=== PATIENT | male | born 1975 | race Caucasian/White ===

== ENCOUNTER 2020-06-08 17:20 | Outpatient (CLI) | payer OTHER, SELFPAY | END 2020-06-08 17:21 | disposition home or self-care (01) | LOC: ANHCOVIDVC 17:20 | PROVIDERS: PCP Family Medicine | DX: Z23 Encounter for immunization (principal) | CPT/HCPCS: 0001A; 91300 ==

== ENCOUNTER 2020-06-29 17:15 | Outpatient (CLI) | payer OTHER, SELFPAY | END 2020-06-29 17:16 | disposition home or self-care (01) | LOC: ANHCOVIDVC 17:15 | PROVIDERS: PCP Family Medicine | DX: Z23 Encounter for immunization (principal) | CPT/HCPCS: 0002A; 91300 ==

== ENCOUNTER 2021-03-11 11:23 | Emergency (ER) | payer OTHER, SELFPAY ==
[2021-03-11 11:30] VITALS: BP 132/85; PULSE 97; RESP 16; TEMP 36.3; O2SAT 98
--- NOTE | 2021-03-11 11:50 | ED.URI ---
HPI - URI/Sore Throat General Chief Complaint: Upper Respiratory Infection Stated Complaint: SORE THROAT/NASAL CONGESTION/CHEST PAIN/COUGH Time Seen by Provider: 03/11/21 11:51 Source: patient, RN notes reviewed and old records reviewed Mode of arrival: ambulatory Limitations: no limitations History of Present Illness HPI Narrative: 45-year-old male presents to [facility] care with complaints of scratchy throat, nasal congestion and drainage since with acute cough and some nausea. Patient denies any known fevers, chills, or sweats or any body aches has had COVID vaccinations. Patient reports that he has taken allergy medication and cold and sinus with no improvement in his symptoms. He reports history of sinusitis and past sore throats, has had Tonsillectomy. Patient reports that he has taken Amoxicillin in past with no problems. MD elicited complaint: cough, sore throat, rhinorrhea and nasal congestion Related Data Home Medications Medication Instructions Recorded Confirmed krill 300 mg-omega-3 90 mg-dha 27 cap PO 10/11/20 10/11/20 mg-epa 45 [id number] capsule Allergies Allergy/AdvReac Type Severity Reaction Status Date / Time JOLENE Inhibitors Allergy Intermediate facial Verified 03/11/21 11:34 swelling cefaclor Allergy Unknown unknown Verified 03/11/21 11:34 Cephalosporins Allergy Unknown unknown Verified 03/11/21 11:34 PROCHLORPERAZINE EDISYLATE Allergy Unknown unknown Uncoded 03/11/21 11:34 PROCHLORPERAZINE MALEATE Allergy Unknown unknown Uncoded 03/11/21 11:34 Review of Systems Review of Systems: CONSTITUTIONAL: Denies fever, chills, or sweats. EYES: Denies visual changes, redness, or discharge. ENT: Positive for rhinorrhea, congestion, sore throat, no otalgia. CARDIOVASCULAR: Denies chest pain, palpitations, or edema. RESPIRATORY:Positive for dry cough no dyspnea. GASTROINTESTINAL: Denies abdominal pain, positive for nausea, no vomiting, or diarrhea. GENITOURINARY: Denies dysuria or hematuria. SKIN: Denies rash or itching. MUSCULOSKELETAL: Denies back pain, joint pain, or myalgia. NEUROLOGIC: Denies headache, numbness, or weakness. 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 Hyperlipidemia, acquired Sinusitis Type 2 diabetes mellitus without complications Surgical History Surgical History (Updated 03/12/21 @ 09:27 by Alysia Leo NP) History of tonsillectomy and adenoidectomy Family History Family History Father Hypertension Family history of diabetes mellitus in first degree relative Family history of coronary artery disease Mother Hypertension Social History Social History (Updated 03/12/21 @ 09:29 by Alysia Leo NP) Smoking status: Never smoker Alcohol intake: unknown Substance use: never Living arrangements: with family Gender identity (if verbalized by the patient): Male Comments At time of signature, agree with nursing past medical, surgical, social and family history. There is no relevant family history pertinent to the presenting complaint Exam Narrative: GENERAL: Well-appearing, well-nourished, and in no acute distress. HEAD: Normocephalic, atraumatic. EYES: PERRLA and EOMI. ENT: Nares rd with swollen turbinates, clear to yellow tinged rhinorrhea no epistaxis. Mucous membranes moist. TM's normal with dull light reflex, throat has redness with no lesions or exudates, tonsils absent, post nasal drainage present. NECK: Supple.no lymphadenopathy CHEST: Clear to auscultation. No respiratory distress.dry cough, SAO2 97% on room air, no tachypnea or any accessory muscle use noted HEART: Regul
== END 2021-03-11 12:08 | disposition home or self-care (01) ==
PROVIDERS: Emergency Provider Registered Nurse
DX: J32.9 Chronic sinusitis, unspecified (principal); B96.89 Other specified bacterial agents as the cause of diseases classified elsewhere; E11.9 Type 2 diabetes mellitus without complications; E78.5 Hyperlipidemia, unspecified; I10 Essential (primary) hypertension
CPT/HCPCS: 99213; G0463

== ENCOUNTER 2021-08-14 16:02 | Emergency (ER) | payer OTHER, SELFPAY ==
--- NOTE | 2021-08-14 16:12 | ED.URI ---
HPI - URI/Sore Throat General Chief Complaint: Upper Respiratory Infection Stated Complaint: scratchy throat/stuffy nose/cough/l earache/hiccup Time Seen by Provider: 08/14/21 16:12 Source: patient, RN notes reviewed and old records reviewed Mode of arrival: ambulatory Limitations: no limitations History of Present Illness HPI Narrative: 46 year old male who presents to [facility] care with complaints of 2 days of scratchy throat, stuffy nose, left earache and he reports he has had hiccups since 0600.Patient reports that he has had dry cough with no expectoration of mucous, his throat is scratchy and he has had some nasal drainage and post nasal drainage with his left ear mildly painful, Patient reports that he has had incidence of hiccups before and was given some medication to get them to go away but doesn't recall name. Patient very agitated and impatient today. Patient has not taken any OTC medications for his symptoms. MD elicited complaint: cough and other (stuffy nose, earache) Related Data Home Medications Medication Instructions Recorded Confirmed krill 300 mg-omega-3 90 mg-dha 27 cap PO 10/11/20 05/06/21 mg-epa 45 [id number] capsule Allergies Allergy/AdvReac Type Severity Reaction Status Date / Time JOLENE Inhibitors Allergy Intermediate facial Verified 05/06/21 15:53 swelling cefaclor Allergy Unknown unknown Verified 05/06/21 15:53 Cephalosporins Allergy Unknown unknown Verified 05/06/21 15:53 PROCHLORPERAZINE EDISYLATE Allergy Unknown unknown Uncoded 05/06/21 15:53 PROCHLORPERAZINE MALEATE Allergy Unknown unknown Uncoded 05/06/21 15:53 Review of Systems Review of Systems: CONSTITUTIONAL: Denies fever, chills, or sweats. EYES: Denies visual changes, redness, or discharge. ENT: Positive for rhinorrhea, congestion, sore throat, left otalgia, also reports hiccups started at 0600. CARDIOVASCULAR: Denies chest pain, palpitations, or edema. RESPIRATORY: Positive cough denies dyspnea. GASTROINTESTINAL: Denies abdominal pain, nausea, vomiting, or diarrhea. GENITOURINARY: Denies dysuria or hematuria. SKIN: Denies rash or itching. MUSCULOSKELETAL: Denies back pain, joint pain, or myalgia. NEUROLOGIC: Denies headache, numbness, or weakness. PSYCHIATRIC: Positive for history of anxiety or depression. 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 There is no relevant family history pertinent to the presenting complaint Exam Narrative: GENERAL: Well-appearing, well-nourished, and in no acute distress. HEAD: Normocephalic, atraumatic. EYES: PERRLA and EOMI. ENT: Nares minimal redness with clear rhinorrhea no epistaxis. Mucous membranes moist.TM's normal with good light reflex, some wax noted to ear canals, throat red with no lesions or exudates, no tonsils present, post nasal drainage noted. Patient states that he has had hiccups since 0600 this morning reports he had this once before about 15 years ago and
[2021-08-14 16:14] VITALS: BP 143/115; PULSE 116; RESP 16; TEMP 36.9; O2SAT 98
== END 2021-08-14 16:46 | disposition home or self-care (01) ==
PROVIDERS: Emergency Provider Registered Nurse
DX: R06.6 Hiccough (principal); J06.9 Acute upper respiratory infection, unspecified; N40.0 Benign prostatic hyperplasia without lower urinary tract symptoms; E78.5 Hyperlipidemia, unspecified; E11.9 Type 2 diabetes mellitus without complications
CPT/HCPCS: 87081; 87880; 99213; G0463

== ENCOUNTER 2021-09-17 11:39 | Emergency (ER) | payer OTHER, SELFPAY ==
[2021-09-17 11:42] VITALS: BP 124/77; PULSE 105; RESP 12; TEMP 36.9; O2SAT 99
--- NOTE | 2021-09-17 11:58 | ED.URI ---
HPI - URI/Sore Throat General Chief Complaint: Upper Respiratory Infection Stated Complaint: SORE THROAT/EARACHE/HEADACHE/CONGESTION Time Seen by Provider: 09/17/21 11:49 Source: patient Mode of arrival: ambulatory Limitations: no limitations History of Present Illness HPI Narrative: Patient presents today complaining of a 5-day history of nasal congestion, intermittent ear pressure, sore throat, and mild cough. Denies fever, shortness of breath, or any additional symptoms. Denies sick contacts. He has been taking Mucinex DM with little relief. Patient is requesting a prescription for amoxicillin as this has helped him in the past. Related Data Home Medications Medication Instructions Recorded Confirmed krill 300 mg-omega-3 90 mg-dha 27 cap PO 10/11/20 05/06/21 mg-epa 45 [id number] capsule (Maximum Red Krill [place]-3) Allergies Allergy/AdvReac Type Severity Reaction Status Date / Time JOLENE Inhibitors Allergy Intermediate facial Verified 05/06/21 15:53 swelling cefaclor Allergy Unknown unknown Verified 05/06/21 15:53 Cephalosporins Allergy Unknown unknown Verified 05/06/21 15:53 PROCHLORPERAZINE EDISYLATE Allergy Unknown unknown Uncoded 05/06/21 15:53 PROCHLORPERAZINE MALEATE Allergy Unknown unknown Uncoded 05/06/21 15:53 Review of Systems Review of Systems: CONSTITUTIONAL: Denies body aches, fever, chills, or sweats. EYES: Denies visual changes, redness, or discharge. ENT: Denies rhinorrhea. + Congestion, sore throat, ear pressure CARDIOVASCULAR: Denies chest pain, palpitations, or edema. RESPIRATORY: Denies dyspnea.+ Cough GASTROINTESTINAL: Denies abdominal pain, nausea, vomiting, or diarrhea. GENITOURINARY: Denies dysuria or hematuria. SKIN: Denies rash, itching, or wounds. MUSCULOSKELETAL: Denies back pain, joint pain, or myalgia. NEUROLOGIC: Denies headache, numbness, tingling, or weakness. PSYCH: Denies depression or anxiety. 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 Hyperlipidemia, acquired Seasonal allergies Type 2 diabetes mellitus without complications Surgical History Surgical History History of tonsillectomy and adenoidectomy Family History Family History Father Hypertension Family history of diabetes mellitus in first degree relative Family history of coronary artery disease Mother Hypertension Social History Social History Smoking status: Never smoker Alcohol intake: unknown Substance use: never Gender identity (if verbalized by the patient): Male Comments At time of signature, I have reviewed and agree with nursing past medical, surgical, social and family history unless otherwise noted. Please see nursing chart for further information. There is no relevant family history pertinent to the presenting complaint Exam Narrative: GENERAL: Well-appearing, well-nourished, and in no acute distress. HEAD: Normocephalic, atraumatic. EYES: EOMI. No redness or drainage. Conjunctivae normal. ENT: Mucous membranes pink and moist. Nares congestion. Nasal turbinates normal without purulent discharge. No rhinorrhea. TMs normal bilaterally. Throat normal. Uvula midline. NECK: Normal AROM. Supple. No lymphadenopathy. CHEST: No respiratory distress. Clear to auscultation. HEART: Regular rate and rhythm. No murmur appreciated. Normal peripheral pulses. EXTREMITIES: Normal range of motion. No edema. SKIN: Warm, dry, no rash. Capillary refill normal. Normal skin turgor. NEURO: No focal deficits. Alert and oriented x3. Gait steady. PSYCH: Normal affect. No signs of depression or anxiety. Course Course Level of Car
== END 2021-09-17 12:06 | disposition home or self-care (01) ==
PROVIDERS: Emergency Provider Nurse Practitioner; PCP Nurse Practitioner Family
DX: J06.9 Acute upper respiratory infection, unspecified (principal); N40.0 Benign prostatic hyperplasia without lower urinary tract symptoms; E78.5 Hyperlipidemia, unspecified; E11.9 Type 2 diabetes mellitus without complications
CPT/HCPCS: 99213; G0463

== ENCOUNTER 2021-12-10 11:33 | Outpatient (CLI) | payer OTHER, SELFPAY ==
[2021-12-10 18:56] LABS: Basophils Absolute Auto 0.1 K/mm3 (0.0-0.1); Basophils Percent Auto 1.4 % (0.2-1.2); Eosinophils Absolute Auto 0.2 K/mm3 (0-0.3); Eosinophils Percent Auto 2.7 % (0-4.4); Hematocrit 45.8 % (42.0-52.0); Hemoglobin 15.5 g/dL (14.0-18.0); Immature Granulocyte Absolute 0.05 K/mm3 (0.00-0.031); Immature Granulocyte Percent A 0.6 % (0-0.5); Lymphocytes Absolute Auto 2.13 K/mm3 (0.9-3.2); Lymphocytes Percent Auto 26.4 % (18.3-44.2); Mean Corpuscular HGB Conc 33.8 g/dl (32-36); Mean Corpuscular Hemoglobin 30.6 pg (26-34); Mean Corpuscular Volume 90.5 fl (80-100); Mean Platelet Volume 8.7 fl (7.4-10.4); Monocytes Absolute Auto 0.4 K/mm3 (0.1-0.6); Monocytes Percent Auto 4.5 % (2.6-8.5); Neutrophils Absolute Auto 5.2 K/mm3 (1.3-6.7); Neutrophils Percent Auto 64.4 % (45.5-73.1); Platelet Count Result 352 k/mm3 (150-375); Red Blood Count 5.06 M/mm3 (4.6-6.20); Red Cell Distribution Width 13.3 % (11.5-14.5); White Blood Count 8.1 K/mm3 (4.5-10.0)
[2021-12-10 19:06] LABS: Cholesterol 195 mg/dL (0-200); HDL Direct 40 mg/dL; Triglycerides 281 mg/dL (<150)
[2021-12-10 19:24] LABS: Hemoglobin A1C 6.1 % (<5.7)
[2021-12-10 19:26] LABS: LDL Cholesterol Direct 95 mg/dL
[2021-12-10 19:54] LABS: Microalbumin Urine Random < 6.0 mg/L (0-16.7)
[2021-12-10 19:55] LABS: MALB Creatinine Ratio < 15.0 mg/g (0-30)
== END 2021-12-10 11:34 | disposition home or self-care (01) ==
LOC: ANHGOSHLAB 11:34
PROVIDERS: PCP Nurse Practitioner Family; Visit Provider Nurse Practitioner Family
DX: R53.83 Other fatigue (principal); I10 Essential (primary) hypertension; E11.9 Type 2 diabetes mellitus without complications; E78.5 Hyperlipidemia, unspecified
CPT/HCPCS: 36415; 80061; 82043; 83036; 84443; 85025

== ENCOUNTER 2022-05-20 11:30 | Emergency (ER) | payer OTHER, SELFPAY ==
[2022-05-20 11:42] VITALS: BP 140/87; PULSE 86; RESP 16; TEMP 36.3; O2SAT 98
--- NOTE | 2022-05-20 12:09 | ED.GENADULT ---
HPI - General Adult General Chief complaint: Upper Respiratory Infection Stated complaint: SORE THROAT/EARS/NOSE/BODY ACHES Source: patient Mode of arrival: ambulatory Limitations: no limitations History of Present Illness HPI narrative: Patient is for evaluation of sick symptoms for last 4 days. Symptoms include sore throat, bilateral otalgia, sinus congestion and cough. No fever, chills, nausea, vomiting, diarrhea. His child recently had sick symptoms but he believes that they were viral in origin. No personal history of COVID. He has received COVID vaccination and booster. Hx of tonsillectomy. No additional or concerns Related Data Home Medications Medication Instructions Recorded Confirmed krill 300 mg-omega-3 90 mg-dha 27 1 cap PO DAILY 10/11/20 05/20/22 mg-epa 45 [id number] capsule (Maximum Red Krill [place]-3) Allergies Allergy/AdvReac Type Severity Reaction Status Date / Time JOLENE Inhibitors Allergy Intermediate facial Verified 05/20/22 11:32 swelling cefaclor Allergy Unknown unknown Verified 05/20/22 11:32 Cephalosporins Allergy Unknown unknown Verified 05/20/22 11:32 PROCHLORPERAZINE EDISYLATE Allergy Unknown unknown Uncoded 05/20/22 11:32 PROCHLORPERAZINE MALEATE Allergy Unknown unknown Uncoded 05/20/22 11:32 Review of Systems Review of Systems: CONSTITUTIONAL: Denies fever, chills, or sweats. EYES: Denies visual changes, redness, or discharge. ENT: reports sinus congestion, sore throat and bilateral otalgia. CARDIOVASCULAR: Denies chest pain, palpitations, or edema. RESPIRATORY: Reports cough. Denies shortness of breath GASTROINTESTINAL: Denies abdominal pain, nausea, vomiting, or diarrhea. GENITOURINARY: Denies dysuria or hematuria. SKIN: Denies rash or itching. MUSCULOSKELETAL: Denies back pain, joint pain, or myalgia. NEUROLOGIC: Denies headache, numbness, dizziness, or weakness. PSYCHIATRIC: Denies anxiety or depression. 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 Hyperlipidemia, acquired Seasonal allergies Type 2 diabetes mellitus without complications Surgical History Surgical History History of tonsillectomy and adenoidectomy Family History Family History Father Hypertension Family history of diabetes mellitus in first degree relative Family history of coronary artery disease Mother Hypertension Social History Social History Smoking status: Never smoker Alcohol intake: current Substance use: never Living arrangements: alone Occupation/Education: occupation Gender identity (if verbalized by the patient): Male Sexual Orientation (if Verbalized by the Patient): Straight or Heterosexual Exam Narrative: GENERAL: Well-appearing, well-nourished, and in no acute distress. HEAD: Normocephalic, atraumatic. EYES: PERRLA and EOMI. ENT: Nares clear, no rhinorrhea or epistaxis. Mucous membranes moist. posterior pharyngeal erythema without exudate. Uvula is midline. ear canals are ceruminous bilaterally. NECK: Supple. No adenopathy or masses. No carotid bruits or JVD CHEST: Clear to auscultation. No respiratory distress. No wheezes rales or rhonchi HEART: Regular rate and rhythm. No murmur heard. Normal peripheral pulses. ABDOMEN: Soft, nontender, nondistended, normal active bowel sounds. EXTREMITIES: Normal range of motion. No edema. SKIN: Warm, dry, no rash. NEURO: No focal deficits. Alert and oriented x3. PSYCH: Normal mood and affect. Course Course Emergency Course: This is a 47-year-old male who presented for evaluation of sore throat, ear pain, sinus congestion cough. Influenza was ne
== END 2022-05-20 12:08 | disposition home or self-care (01) ==
PROVIDERS: Emergency Provider Nurse Practitioner
DX: J02.0 Streptococcal pharyngitis (principal); E78.5 Hyperlipidemia, unspecified; E11.9 Type 2 diabetes mellitus without complications; I10 Essential (primary) hypertension; N40.0 Benign prostatic hyperplasia without lower urinary tract symptoms; Z79.84 Long term (current) use of oral hypoglycemic drugs
CPT/HCPCS: 87804; 87880; 99213; G0463

== ENCOUNTER 2022-07-18 08:00 | Outpatient (CLI) | payer OTHER, SELFPAY ==
[2022-07-18 18:17] LABS: Basophils Absolute Auto 0.1 K/mm3 (0.0-0.1); Basophils Percent Auto 1.5 % (0.2-1.2); Eosinophils Absolute Auto 0.4 K/mm3 (0-0.3); Eosinophils Percent Auto 4.3 % (0-4.4); Hematocrit 43.3 % (42.0-52.0); Hemoglobin 15.2 g/dL (14.0-18.0); Immature Granulocyte Absolute 0.06 K/mm3 (0.00-0.031); Immature Granulocyte Percent A 0.7 % (0-0.5); Lymphocytes Percent Auto 27.2 % (18.3-44.2); Mean Corpuscular HGB Conc 35.1 g/dl (32-36); Mean Corpuscular Hemoglobin 30.9 pg (26-34); Mean Platelet Volume 8.9 fl (7.4-10.4); Monocytes Absolute Auto 0.4 K/mm3 (0.1-0.6); Monocytes Percent Auto 5.2 % (2.6-8.5); Neutrophils Absolute Auto 4.9 K/mm3 (1.3-6.7); Neutrophils Percent Auto 61.1 % (45.5-73.1); Platelet Count Result 326 k/mm3 (150-375); Red Blood Count 4.92 M/mm3 (4.6-6.20); Red Cell Distribution Width 12.5 % (11.5-14.5); White Blood Count 8.1 K/mm3 (4.5-10.0)
[2022-07-18 18:35] LABS: Hemoglobin A1C 6.2 % (<5.7)
[2022-07-18 18:51] LABS: Alanine Aminotransferase 34 U/L (6-50); Albumin Level 4.4 g/dL (3.5-5.1); Alkaline Phosphatase 80 U/L (38-126); Anion Gap 6 mmol/L (8-16); Aspartate Amino Transferase 34 U/L (17-59); Bilirubin,Total 1.1 mg/dL (0.2-1.3); Blood Urea Nitrogen 13 mg/dL (9-20); Calcium 8.9 mg/dL (8.4-10.2); Carbon Dioxide 31 mmol/L (22-30); Chloride 99 mmol/L (98-107); Cholesterol 146 mg/dL (0-200); Estimated Glomerular Filt Rate > 60; Glucose 145 mg/dL (65-110); HDL Direct 38 mg/dL; Potassium 4.2 mmol/L (3.4-5.0); Sodium 136 mmol/L (137-145); Triglycerides 315 mg/dL (<150)
[2022-07-18 19:02] LABS: LDL Cholesterol Direct 61 mg/dL
== END 2022-07-18 08:01 | disposition home or self-care (01) ==
LOC: ANHGOSHLAB 08:01
PROVIDERS: Visit Provider Nurse Practitioner Family
DX: E11.9 Type 2 diabetes mellitus without complications (principal); I10 Essential (primary) hypertension; E78.5 Hyperlipidemia, unspecified
CPT/HCPCS: 36415; 80053; 80061; 83036; 85025

== ENCOUNTER 2022-10-09 10:35 | Outpatient (CLI) | payer OTHER, SELFPAY ==
[2022-10-09 19:13] LABS: Alanine Aminotransferase 52 U/L (6-50); Albumin Level 4.5 g/dL (3.5-5.1); Alkaline Phosphatase 74 U/L (38-126); Anion Gap 8 mmol/L (8-16); Aspartate Amino Transferase 52 U/L (17-59); Bilirubin,Total 0.9 mg/dL (0.2-1.3); Blood Urea Nitrogen 14 mg/dL (9-20); Calcium 9.1 mg/dL (8.4-10.2); Carbon Dioxide 25 mmol/L (22-30); Chloride 105 mmol/L (98-107); Estimated Glomerular Filt Rate > 60; Glucose 133 mg/dL (65-110); Potassium 4.3 mmol/L (3.4-5.0); Sodium 138 mmol/L (137-145)
[2022-10-09 19:25] LABS: Vitamin D 25 Hydroxy 28.7 ng/mL
[2022-10-09 19:43] LABS: Basophils Absolute Auto 0.1 K/mm3 (0.0-0.1); Basophils Percent Auto 1.5 % (0.2-1.2); Eosinophils Absolute Auto 0.2 K/mm3 (0-0.3); Eosinophils Percent Auto 3.2 % (0-4.4); Hematocrit 45.3 % (42.0-52.0); Hemoglobin 15.2 g/dL (14.0-18.0); Immature Granulocyte Absolute 0.04 K/mm3 (0.00-0.031); Immature Granulocyte Percent A 0.6 % (0-0.5); Immature Platelet Fraction Pct 2.5 % (0.9-11.2); Lymphocytes Absolute Auto 2.12 K/mm3 (0.9-3.2); Lymphocytes Percent Auto 31.2 % (18.3-44.2); Mean Corpuscular HGB Conc 33.6 g/dl (32-36); Mean Corpuscular Hemoglobin 30.7 pg (26-34); Mean Corpuscular Volume 91.5 fl (80-100); Mean Platelet Volume 9.3 fl (7.4-10.4); Monocytes Absolute Auto 0.3 K/mm3 (0.1-0.6); Monocytes Percent Auto 4.7 % (2.6-8.5); Neutrophils Percent Auto 58.8 % (45.5-73.1); Platelet Count Result 370 k/mm3 (150-375); Red Blood Count 4.95 M/mm3 (4.6-6.20); Red Cell Distribution Width 13.3 % (11.5-14.5); White Blood Count 6.8 K/mm3 (4.5-10.0)
[2022-10-09 19:57] LABS: Platelet Estimate Adequate (Adequate); Schistocytes None Seen (NORMAL)
[2022-10-09 20:30] LABS: Hemoglobin A1C 7.1 % (<5.7)
[2022-10-14 12:39] LABS: Testosterone Free 79.2 pg/mL (35.0-155.0); Testosterone Total 273 ng/dL (250-1100)
== END 2022-10-09 10:36 | disposition home or self-care (01) ==
LOC: ANHGOSHLAB 10:36
PROVIDERS: PCP Nurse Practitioner Family; Visit Provider Family Medicine
DX: Z00.00 Encounter for general adult medical examination without abnormal findings (principal); R53.83 Other fatigue; I10 Essential (primary) hypertension; E11.9 Type 2 diabetes mellitus without complications; E53.8 Deficiency of other specified B group vitamins; E55.9 Vitamin D deficiency, unspecified
CPT/HCPCS: 36415; 80053; 82306; 82607; 83036; 84402; 84403; 84443; 85025; 85055

== ENCOUNTER 2023-09-02 07:55 | Outpatient (CLI) | payer OTHER, SELFPAY ==
[2023-09-02 19:33] LABS: Basophils Absolute Auto 0.1 K/mm3 (0.0-0.1); Basophils Percent Auto 1.2 % (0.2-1.2); Eosinophils Absolute Auto 0.3 K/mm3 (0-0.3); Eosinophils Percent Auto 3.9 % (0-4.4); Hematocrit 45.6 % (42.0-52.0); Hemoglobin 15.1 g/dL (14.0-18.0); Immature Granulocyte Percent A 1.2 % (0-0.5); Lymphocytes Absolute Auto 2.66 K/mm3 (0.9-3.2); Lymphocytes Percent Auto 32.6 % (18.3-44.2); Mean Corpuscular HGB Conc 33.1 g/dl (32-36); Mean Corpuscular Hemoglobin 30.9 pg (26-34); Mean Corpuscular Volume 93.4 fl (80-100); Mean Platelet Volume 8.9 fl (7.4-10.4); Monocytes Absolute Auto 0.4 K/mm3 (0.1-0.6); Monocytes Percent Auto 5.4 % (2.6-8.5); Neutrophils Absolute Auto 4.5 K/mm3 (1.3-6.7); Neutrophils Percent Auto 55.7 % (45.5-73.1); Platelet Count Result 322 k/mm3 (150-375); Red Blood Count 4.88 M/mm3 (4.6-6.20); Red Cell Distribution Width 12.7 % (11.5-14.5); White Blood Count 8.2 K/mm3 (4.5-10.0)
[2023-09-02 20:42] LABS: Alanine Aminotransferase 32 U/L (6-50); Albumin Level 4.3 g/dL (3.5-5.1); Alkaline Phosphatase 63 U/L (38-126); Anion Gap 6 mmol/L (4-12); Aspartate Amino Transferase 40 U/L (17-59); Bilirubin,Total 1.2 mg/dL (0.2-1.3); Blood Urea Nitrogen 13 mg/dL (9-20); Carbon Dioxide 27 mmol/L (22-30); Chloride 104 mmol/L (98-107); Cholesterol 152 mg/dL (0-200); Estimated Glomerular Filt Rate > 60; Glucose 150 mg/dL (65-110); HDL Direct 37 mg/dL; Potassium 4.4 mmol/L (3.4-5.0); Sodium 137 mmol/L (137-145); Triglycerides 309 mg/dL (<150)
[2023-09-02 20:54] LABS: LDL Cholesterol Direct 76 mg/dL
[2023-09-02 21:07] LABS: Hemoglobin A1C 6.6 % (<5.7)
[2023-09-02 21:08] LABS: Creatinine Urine 18.9 mg/dL
[2023-09-02 21:34] LABS: Microalbumin Urine Random < 6.0 mg/L (0-16.7)
[2023-09-05 11:34] LABS: Vitamin D 1,25 (OH)2 Total 38 pg/mL (18-72); Vitamin D2 1,25 (OH)2 <8 pg/mL; Vitamin D3 1,25 (OH)2 38 pg/mL
== END 2023-09-02 07:56 | disposition home or self-care (01) ==
LOC: ANHGOSHLAB 07:56
PROVIDERS: PCP Nurse Practitioner Family; Visit Provider Nurse Practitioner Family
DX: E55.9 Vitamin D deficiency, unspecified (principal); I10 Essential (primary) hypertension; E11.9 Type 2 diabetes mellitus without complications; E53.8 Deficiency of other specified B group vitamins
CPT/HCPCS: 36415; 80053; 80061; 82043; 82607; 82652; 83036; 85025

== ENCOUNTER 2024-06-14 12:01 | Emergency (ER) | payer OTHER, SELFPAY ==
--- NOTE | 2024-06-14 12:04 | ED_ITS ---
HPI - URI/Sore Throat General Chief Complaint: Upper Respiratory Infection Stated Complaint: sorethroat Time Seen by Provider: 06/14/24 12:10 Source: patient Mode of arrival: ambulatory Limitations: no limitations History of Present Illness HPI Narrative: Gareth is a 49-year-old male patient presenting to the clinic today with complaints of sore throat, body aches, nasal congestion, cough, feeling feverish x 1 day. He reports no chest pain or shortness of breath. MD elicited complaint: fever, cough, sore throat and nasal congestion Related Data Home Medications ?Medication ?Instructions ?Recorded ?Confirmed ?Last Taken ?Type krill 300 mg-omega-3 90 mg-dha 27 1 cap PO DAILY 10/11/20 06/14/24 Unknown History mg-epa 45 [id number] capsule (Maximum Red Krill [place]-3) esomeprazole magnesium 20 mg 20 mg PO DAILY 09/29/22 06/14/24 Unknown History capsule,delayed release (Nexium) Allergies Allergy/AdvReac Type Severity Reaction Status Date / Time JOLENE Inhibitors Allergy Intermediate facial Verified 06/14/24 12:08 swelling cefaclor Allergy Unknown unknown Verified 06/14/24 12:08 Cephalosporins Allergy Unknown unknown Verified 06/14/24 12:08 PROCHLORPERAZINE EDISYLATE Allergy Unknown unknown Uncoded 06/14/24 12:08 PROCHLORPERAZINE MALEATE Allergy Unknown unknown Uncoded 06/14/24 12:08 Review of Systems Review of Systems: Pertinent positives per HPI. Patient denies any rash, headache, visual changes, dizziness, shortness of breath, chest pain, palpitations, nausea, vomiting, diarrhea, constipation, abdominal pain, or any urinary issues. 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 Hyperlipidemia, acquired Surgical History Surgical History History of tonsillectomy and adenoidectomy Family History Family History Father Hypertension Family history of diabetes mellitus in first degree relative Family history of coronary artery disease Mother Hypertension Social History Social History Smoking status: Never smoker Alcohol intake: current Alcohol use details: occasional (1-2 drinks every couple of weeks) Substance use: never Substance use type: does not use Lack of Transportation: No Lack of Food: Never True Current Housing: I Have Housing Concerned About Future Housing: No Difficulty Paying Gas/Electric Bills: No Difficulty Paying for Meds: No Currently Unemployed: No Education: High School Diploma/GED Difficulty w/ Childcare or Family Care: No Living arrangements: alone Occupation/Education: occupation Gender identity (if verbalized by the patient): Male Sexual Orientation (if Verbalized by the Patient): Straight or Heterosexual Spiritual care concerns: No Agree to blood products: Yes Comments At the time of my signature, I reviewed and agree with the nursing past medical, surgical, social, and family history. There is no relevant family history pertinent to the patient complaint. Exam Narrative: General: Well-developed, well nourished, in no apparent distress Head: Normocephalic, atraumatic Eyes: Pupils equally round and reactive to light bilaterally, EOM intact, sclera and conjunctive clear, no discharge, lids normal Ears: TMs intact and clear, ear canals clear, no drainage, grossly hearing normal. Nose: Nares patent, clear nasal discharge, no inflammation, no sinus tenderness. Mouth: Oral pharynx red without lesions or masses, good dentition, MMM. Neck: Supple, trachea midline, no enlargement of anterior or posterior cervical nodes, no thyroid masses or goiter palpable. Cardio: Regular rate and rhythm, s1 and s2 normal, no murmur appreciated. Resp: Clear to auscultation bilaterally, no rhonchi, rales, wheezing or rubs Course Course Emergency Course: Portions of this record may have been created with voice recognition software. Level of Care: Express Care Visit Vital Signs Vital signs: Vital Signs Temperature 36.0 C L 06/14/24 12:13 Pulse Rate 98 06/14/24 12:13 Respiratory Rate 16 06/14/24 12:13 Blood Pressure 106/92 H 06/14/24 12:13 Pulse Oximetry 97 06/14/24 12:13 Temperature 36.0 C L 06/14/24 12:13 Pulse Rate 98 06/14/24 12:13 Respiratory Rate 16 06/14/24 12:13 Blood Pressure 106/92 H 06/14/24 12:13 Pulse Oximetry 97 06/14/24 12:13 Vital signs reviewed MDM - URI/Sore Throat MDM Narrative Medical decision making narrative: At the time of visit patient is resting comfortably on the exam table. Patient appears to be nontoxic. Labs: COVID, influenza, and strep test were all performed. All testing was negative. Plan: I suspect patient has URI/pharyngitis/viral syndrome. Supportive measures were discussed with the patient and they voiced understanding discharge instructions and agrees to treatment plan. Return precautions reviewed Differential Diagnosis Differential diagnosis: Likely upper respiratory infection, otitis media, sinusitis, viral infection, bronchitis, influenza, pharyngitis and other (COVID) Lab Data Labs: Lab Results 06/14/24 06/14/24 Range/Units 12:23 12:27 POC Influenza A Ag Negative (Negative) POC Influenza B Ag Negative (Negative) POC SARS CoV-2 Ag Negative (Negative) POC Grp A Strep Screen Negative (Negative) Discharge Plan Discharge Clinical Impression: Viral infection Upper respiratory infection Qualifiers: URI type: unspecified URI Qualified Code(s): J06.9 - Acute upper respiratory infection, unspecified Pharyngitis Qualifiers: Pharyngitis/tonsillitis etiology: unspecified etiology Qualified Code(s): J02.9 - Acute pharyngitis, unspecified Patient Disposition: Home, Self-Care Condition: Stable Instructions: Antibiotic Form, Pharyngitis (ED), Viral Syndrome (ED), Cold Symptoms (ED) Additional Instructions: COVID, influenza, and strep test were all performed and negative in the clinic today. We will send strep for culture. No sign of bacterial infection in the clinic today and lung sounds are clear May take Coricidin HBP for cold/flu symptoms Increase fluids and stay well hydrated Tylenol/motrin for pain/fever Flonase and OTC antihistamines as directed Vicks vapor rub to open sinuses Sinus rinses for congestion Cepacol spray, cough drops, throat lozenges, warm tea with honey/lemon, gargle salt water to soothe throat BRAT diet for diarrhea Clear liquids x 24 hours then advance as tolerated for nausea/vomiting Go to the ED if you develop a worsening in your condition- high fever not controlled by Tylenol or Motrin, dehydration, weakness, lethargy, shortness of breath, or chest pain. Follow up with your PCP in 3-5 days if symptoms persist. Patient Language: Colombian Prescriptions: No Action Maximum Red Krill [place]-3 [id number] mg capsule 1 cap PO DAILY esomeprazole magnesium [Nexium] 20 mg Capsule,Delayed Release(Dr/Ec) 20 mg PO DAILY cyanocobalamin (vitamin B-12) 1,000 mcg tablet, sublingual 1,000 mcg sublingual DAILY Qty: 90 1RF cholecalciferol (vitamin D3) 50 mcg (2,000 unit) tablet 50 mcg PO DAILY Qty: 90 2RF losartan 25 mg tablet 25 mg PO DAILY Qty: 90 1RF diltiazem HCl 60 mg capsule,extended release 12 hr 60 mg PO DAILY Qty: 90 1RF rosuvastatin 10 mg tablet 10 mg PO DAILY Qty: 90 1RF metformin [Glucophage XR] 500 mg tablet extended release 24 hr 1,000 mg PO DAILY Qty: 180 1RF Follow-up/Referrals: [facility] [Primary Care Provider] - Stand Alone Forms: Work/School Release IP Time of Disposition: 12:32 Quality NIHSS Nursing Documentation ED NIHSS nursing documentation: reviewed/agree
[2024-06-14 12:13] VITALS: BP 106/92; PULSE 98; RESP 16; TEMP 36; O2SAT 97
[2024-06-14 12:25] LABS: EDSTREPNEGPOS1 Negative (Negative)
[2024-06-14 12:29] LABS: EDCOVIDSCREEN Negative (Negative); EDINFLUASCREEN Negative (Negative); EDINFLUBSCREEN Negative (Negative)
== END 2024-06-14 12:37 | disposition home or self-care (01) ==
PROVIDERS: Emergency Provider Nurse Practitioner Family
DX: J06.9 Acute upper respiratory infection, unspecified (principal); E11.9 Type 2 diabetes mellitus without complications; E78.5 Hyperlipidemia, unspecified; I10 Essential (primary) hypertension; Z20.822 Contact with and (suspected) exposure to COVID-19
CPT/HCPCS: 87081; 87426; 87804; 87880; 99213; G0463

== ENCOUNTER 2025-02-28 07:55 | Outpatient (CLI) | payer OTHER, SELFPAY ==
[2025-02-28 20:33] LABS: Hematocrit 46.0 % (42.0-52.0); Hemoglobin 15.7 g/dL (14.0-18.0); Immature Granulocyte Percent A 0.4 % (0-0.5); Lymphocytes Absolute Auto 3.09 K/mm3 (0.9-3.2); Mean Corpuscular HGB Conc 34.1 g/dl (32-36); Mean Corpuscular Hemoglobin 30.8 pg (26-34); Mean Corpuscular Volume 90.2 fl (80-100); Nucleated Red Blood Cells Absolute Auto 0.000 K/mm3 (0.0-0.012); Nucleated Red Blood Cells Perc 0.0 % (0.0-0.2); Platelet Count Result 320 k/mm3 (150-375); Red Blood Count 5.10 M/mm3 (4.6-6.20); White Blood Count 8.3 K/mm3 (4.5-10.0)
[2025-02-28 20:56] LABS: Hemoglobin A1C 9.0 % (<5.7)
[2025-02-28 21:10] LABS: Thyroid Stimulating Hormone Reflex 2.150 uIU/mL (0.465-4.68)
[2025-02-28 21:55] LABS: Alanine Aminotransferase 39 U/L (6-50); Albumin Level 4.4 g/dL (3.5-5.1); Alkaline Phosphatase 94 U/L (38-126); Anion Gap 9 mmol/L (4-12); Aspartate Amino Transferase 36 U/L (17-59); Bilirubin,Total 1.0 mg/dL (0.2-1.3); Blood Urea Nitrogen 14 mg/dL (9-20); Calcium 9.6 mg/dL (8.4-10.2); Carbon Dioxide 21 mmol/L (22-30); Chloride 102 mmol/L (98-107); Cholesterol 147 mg/dL (0-200); Estimated Glomerular Filt Rate > 60; Glucose 209 mg/dL (65-110); HDL Direct 37 mg/dL; Potassium 3.8 mmol/L (3.4-5.0); Sodium 132 mmol/L (137-145); Total Protein 7.4 g/dL (6.3-8.2)
[2025-02-28 23:27] LABS: Triglycerides 629 mg/dL (<150)
== END 2025-02-28 07:56 | disposition home or self-care (01) ==
LOC: ANHGOSHLAB 07:56
PROVIDERS: PCP Nurse Practitioner Family; Visit Provider Nurse Practitioner Family
DX: E78.5 Hyperlipidemia, unspecified (principal); E11.9 Type 2 diabetes mellitus without complications; I10 Essential (primary) hypertension; E55.9 Vitamin D deficiency, unspecified
CPT/HCPCS: 36415; 80053; 80061; 82306; 83036; 84443; 85025